=== PATIENT | male | born 1940 | race Caucasian/White ===

== ENCOUNTER → 2016-08-10 | Day surgery (SDC) | payer MEDICARE, OTHER ==
[~2016-08-10] MED LIST: ACETAMINOPHEN/HYDROcodone 325 MG/5 MG TAB ONE; BUPIVACAINE/EPINEPHRINE 0.5% PF 30 ML VIAL ONE; KETOROLAC TROMETHAMINE 30 MG/ML (IVP) VIAL IV PUSH ONE; LACTATED RINGER'S 1000 ML INJ 1,000 ML ONE; LIDOCAINE 1%/EPINEPHrine 1:100,000 SOLN 20 ML VIAL ONE; MIDAZOLAM HCL 2 MG/2 ML VIAL ONE; PROPOFOL 200 MG/20 ML AMP IV ONE; ceFAZolin 2 GM PREMIX 50 ML ONE
--- NOTE | 2016-08-10 16:13 | TN ---
cc: KAREN NYE DATE OF SURGERY: 08/10/2016. PREOPERATIVE DIAGNOSIS: Compression fracture of L1. POSTOPERATIVE DIAGNOSIS: Compression fracture of L1. OPERATIVE PROCEDURE PERFORMED: Kyphoplasty of L1 and placement of a bone cement spacer. SURGEON: Karen Nye MD. ANESTHESIA: TIVA. ESTIMATED BLOOD LOSS: Minimal. INDICATIONS FOR THE PROCEDURE: This is a 76-year-old male who injured his back around Thanksgiving. He was [place]-of-town and [id number]. This was treated conservatively but the patient had beleaguering ongoing back pain. Studies recently showed evidence of a nonhealing subacute fracture at L1. He presents now for kyphoplasty at that level. DESCRIPTION OF THE PROCEDURE IN DETAIL: The patient was brought to the operating and given limited sedation. He was rolled to a prone position on a radiolucent table. All pressure points were protected and the back was scrubbed with alcohol followed by Hibiclens followed by Chloraprep and draped sterilely. Antibiotics were given within one hour time window and a time-out was done. AP and lateral radiographic images was used identifying the L1 level. This compared to preoperative studies. A single balloon approach was utilized from the left side. A sequence of local anesthesia, an awl was placed through the skin and through the fascia into the pedicle and into the vertebral body. A 20 mm Kyphon Balloon was placed centrally at the L1 level. This was inflated while on the back table, methyl methacrylate was mixed. After approximately 12 minutes, the cement was injected. We had good fill of the cement and good correction of the cephalad end plate. We were very satisfied that there was overall good correction of the deformity without evidence of extravasation. The wound was irrigated and anesthetized and closed with 4-0 Vicryl followed by Dermabond. The patient was awakened and taken to the recovery room in satisfactory condition. Karen Nye MD [facility] [place] /4:02 PM /4:07 PM
== END | disposition home or self-care (01) ==
LOC: ESDC 14:21
PROVIDERS: ATTEND Orthopaedic Surgery Orthopaedic Surgery of the Spine
DX: S32.010A Wedge compression fracture of first lumbar vertebra, initial encounter for closed fracture (principal)
CPT/HCPCS: 01936; 22514; 72100; J0690; J1885; J2250; J3010; J7120

== ENCOUNTER → 2017-09-16 | Outpatient (CLI) | payer MEDICARE, OTHER ==
[~2017-09-16] MED LIST changes: -ACETAMINOPHEN/HYDROcodone 325 MG/5 MG TAB ONE; +ASPI-516 CHEW; -BUPIVACAINE/EPINEPHRINE 0.5% PF 30 ML VIAL ONE; -KETOROLAC TROMETHAMINE 30 MG/ML (IVP) VIAL IV PUSH ONE; -LACTATED RINGER'S 1000 ML INJ 1,000 ML ONE; -LIDOCAINE 1%/EPINEPHrine 1:100,000 SOLN 20 ML VIAL ONE; -MIDAZOLAM HCL 2 MG/2 ML VIAL ONE; +NO ITAB PO; -PROPOFOL 200 MG/20 ML AMP IV ONE; +SIMV40TA PO; -ceFAZolin 2 GM PREMIX 50 ML ONE
--- NOTE | 2017-09-16 21:14 | EKG ---
Date Performed: 09/16/2017 Time Performed: 12:02:06 PTAGE: 77 years EKG: Sinus rhythm NORMAL ECG NO PREVIOUS TRACING DOCTOR: Aspen Scott Interpretating Date/Time 09/16/2017 21:13:36
== END ==
LOC: PHPRE 11:07
PROVIDERS: ATTEND Ophthalmology
DX: Z01.810 Encounter for preprocedural cardiovascular examination (principal)
CPT/HCPCS: 93005

== ENCOUNTER → 2017-09-30 | Day surgery (SDC) | payer MEDICARE, OTHER ==
--- NOTE | 2017-09-24 08:11 | MH ---
cc: Stone Cheema MD DATE OF ADMISSION: 09/30/2017 ADMISSION DIAGNOSIS: Cataract, left eye. HISTORY OF PRESENT ILLNESS: This 77-year-old white male coming to [facility] for the purpose of a lens extraction of the left eye with intraocular lens implant under local anesthesia. He has noted decreasing visual acuity interfering with his daily activities and elected to have the above procedure. His best corrected visual acuity in room light is 20/30, -2 in the right eye and 20/70 in the left eye. 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 PAST SURGICAL HISTORY: Includes a colon resection and spinal surgery. DAILY MEDICATIONS: Include simvastatin and baby aspirin. ALLERGIES: NO KNOWN ALLERGIES. SOCIAL HISTORY: He does not smoke and drinks 1 wine per day of alcohol. FAMILY HISTORY: Noncontributory. REVIEW OF SYSTEMS: HEAD: Patient denies severe headaches, dizziness or recent head injury. EARS: Patient denies hearing loss, ear pain, or discharge. The patient does have ringing in his ears, tinnitus bilaterally for many years. NOSE: Patient denies nasal discharge, obstruction or frequent colds. MOUTH AND THROAT: Patient denies soreness of the mouth or tongue, bleeding gums, trouble swallowing, changes in voice or sore throat. NECK: Patient denies neck pain or swelling, limitation of neck movement or neck injury. CARDIOPULMONARY SYSTEM: Patient denies shortness of breath, orthopnea, chronic cough, sputum production, hemoptysis, chest pain, wheezing, palpitations or light-headedness. GI SYSTEM: Patient denies poor appetite, nausea, vomiting, abdominal pain, ulcers, hemorrhoids or change in bowel habits. SYSTEM: The patient denies dysuria or change in urine color. He does get up once a night to urinate. NERVOUS SYSTEM: Patient denies convulsions, vertigo, stroke, numbness or weakness. PHYSICAL EXAMINATION: VITAL SIGNS: Blood pressure 116/72, pulse 88, respirations 16. HEAD: Normocephalic, atraumatic. NOSE: Without rhinorrhea. THROAT: Clear. NECK: Supple. CHEST: Clear. CARDIOVASCULAR: Regular rhythm. ABDOMEN: Without tenderness. EXTREMITIES: Without edema. NEUROLOGIC: Within normal limits Mental status within normal limits. EYE EXAM: The patient's best corrected visual acuity in room light is 20/30,-2 in the right eye and 20/70 in the left. Visual thomas are full to confrontation testing. Extraocular muscle exam reveals full versions with orthophoria at distance and near. Pupils are 3 mm, equal, round, and reactive to light, without afferent defect. Anterior segment examination reveals dermatochalasis of the eyelid skin. There are nuclear sclerotic posterior cortical and posterior subcapsular cataracts bilaterally, left eye greater than the right. Intraocular pressure is 20 in the right eye and 19 in the left by applanation tonometry. Dilated fundus exam revealed sharp disks with cup-to-disc ratio 0.2 bilaterally. There is some drusen in the macula of the right eye and the macula of the left eye is obscured by the cataract for the view. A posterior vitreous detachment is present in the left eye. IMPRESSION: 1. Bilateral cataracts, left greater than right. 2. Posterior vitreous detachment, left eye. 3. Small choroidal nevus, right eye. 4. Macular drusen, right eye. PLAN: A lens extraction of the left eye with intraocular lens implant under local anesthesia through [facility]. Iris retractors may be used in this case, as the pupil does not dilate well. The patient has been cleared medically. He has been counseled as to the risks, benefits and alternatives and elected to proceed. I feel the cataract surgery will improve the quality of life and activities of daily living in this patient. MD ORIANA Alva/ALONDRA , 07:48 AM , 08:10 AM
[~2017-09-30] VITALS: Ht 167.6 cm; Wt 82.0 kg
[~2017-09-30] MED LIST changes: +ACETYLCHOLINE CHL OPHT SOLN 1:100 2 ML VIAL ONE; +CHLORHEXIDINE GLUCONATE 2 % 1 PACK (2 CLOTHS) TOPICAL PRN; +EPINEPHrine HCL PF/SF (1:1000) 1 MG/ML AMP I-OCULAR ONE; +HYALURONIDASE/LIDOCAINE/BUPIVACAINE 5 ML SYR LEFT EYE ONE; +LACTATED RINGER'S 1000 ML IV PRN; +METOPROLOL TARTRATE 25 MG TAB PO PRN; +PILOCARPINE HCL 2% OPHT SOLN 15 ML BTL ONE; +POVIDONE IODINE 5% (ANTISEPSIS KIT) 4 APPLICATIONS EACH NARE PRN; +PROPARACAINE HCL 0.5% OPHT SOLN 15 ML BTL LEFT EYE ONE; +PROPOFOL 200 MG/20 ML AMP ONE; +SODIUM CHLORID 0.9% 500 ML IV PRN; +TETRACAINE 0.5% OPTH SOLN 4 ML BTL ONE; +TOBRAMYCIN/DEXAMETHASONE OPTH OINT 3.5 GM TUBE ONE; +VISCOAT OPHT IRRIG SOLN 0.75 ML SYRINGE ONE
[2017-09-30 07:52] VITALS: PULSE 57
[2017-09-30] MEDS: TROPICAMIDE 1% OPHT SOLN 15 ML BTL LEFT EYE SCH ×4 (07:52→08:01)
[2017-09-30] MEDS: GATIFLOXACIN 0.5% OPHT SOLN 2.5 ML BTL LEFT EYE SCH ×4 (07:52→08:01)
[2017-09-30] MEDS: PHENYLEPHRINE HCL 2.5% OPTH SOLN 2 ML BTL LEFT EYE SCH ×4 (07:52→08:01)
[2017-09-30] MEDS: CYCLOPENTOLATE HCL 1% OPHT SOLN 2 ML BTL LEFT EYE SCH ×4 (07:52→08:01)
[2017-09-30] MEDS: DICLOFENAC SOD 0.1% OPHT SOLN 2.5 ML BTL LEFT EYE SCH ×4 (07:52→08:01)
[2017-09-30 08:18] VITALS: PULSE 57; PULSE 77
--- NOTE | 2017-09-30 10:52 | MP ---
cc: Stone Cheema MD DATE OF OPERATION: 09/30/2017 PREOPERATIVE DIAGNOSIS: Cataract left eye. POSTOPERATIVE DIAGNOSIS: Cataract left eye. OPERATION: Extracapsular cataract extraction with posterior chamber intraocular lens implant by phacoemulsification, left eye. SURGEON: Stone Cheema M.D. ANESTHESIA: Local. COMPLICATIONS: None. INDICATIONS: See history and physical previously dictated. OPERATIVE PROCEDURE: The patient had adequate retrobulbar and eyelid blocks administered in the holding area and was brought to the operating room. The left eye was prepped and draped in the usual sterile ophthalmic manner. A lid speculum was inserted in the left eye. A 4-0 silk bridle suture was placed through the conjunctiva near the superior rectus muscle and it was tagged to the drape. A fornix-based conjunctival flap was prepared spanning approximately 5 mm in width. Hemostasis was obtained with wet-field cautery. A 3.5 mm groove was made 1 mm from the limbus and dissected up to the limbus in the form of a scleral pocket incision. A stab incision was then made at the 2 o'clock position. Viscoelastic was injected into the anterior chamber. In order to maintain an adequately dilated pupil, it was elected to use iris retractors in this case. Stab incisions were made at the 1 o'clock, 3 o'clock, 5 o'clock, 8 o'clock and 10 o'clock positions. Iris retractors were then inserted through the stab incisions in the peripheral cornea and positioned to enlarge the size of the pupil. The anterior chamber was entered with a 2.75 mm keratome through the scleral pocket incision. A 360 degree continuous curvilinear capsulorrhexis was then performed. Hydrodissection was utilized to divide the nucleus into inner and outer components and to separate the cortex from the capsule. Phacoemulsification was then utilized to remove the nucleus. The outer nuclear layer was removed with irrigation and aspiration and short bursts of ultrasound as necessary. The cortex was removed with the irrigation-aspiration handpiece. The posterior capsule was polished with the capsule polisher. Viscoelastic was injected into the capsular bag. The intraocular lens was inspected and found to be in good condition. The lens utilized was a Norbert, model SA60AT with a power of +21 diopters. The lens was inserted into the capsular bag. The five iris retractors were removed. The viscoelastic in the anterior chamber was then removed with the irrigation-aspiration hand piece. Viscoelastic was also removed from beneath the intraocular lens. The anterior chamber was filled with Miochol-E through the stab incision and pressurized. The wound was checked for leaks at this pressure and normalized pressure and there were none. The 4-0 bridle suture was removed. The conjunctival flap was brought down over the wound and secured with cautery. Pilocarpine 2% eye drops were instilled topically. The lid speculum was removed. TobraDex ophthalmic ointment was applied. The eye was double patched and shielded. The patient tolerated the procedure well and left the Operating Room in satisfactory condition. MD ORIANA Alva/LEIDA , 10:26 AM , 10:51 AM RADHA
[2017-09-30 11:00] VITALS: BP 122/71; PULSE 64; RESP 16; TEMP 98; O2SAT 100
== END | disposition home or self-care (01) ==
LOC: PHSDC 07:00 → EDSTATUS 08:45
PROVIDERS: ATTEND Ophthalmology
DX: H26.9 Unspecified cataract (principal); H35.361 Drusen (degenerative) of macula, right eye; H43.812 Vitreous degeneration, left eye; D31.31 Benign neoplasm of right choroid
CPT/HCPCS: 00142; 66984; J0171; J7040; V2632